=== PATIENT | female | born 1965 | race Hispanic/Latino ===

== ENCOUNTER → 2020-05-27 | Outpatient (CLI) | payer OTHER | END | disposition home or self-care (01) | LOC: RAH 12:52 | PROVIDERS: ATTEND Internal Medicine | DX: Z13.6 Encounter for screening for cardiovascular disorders (principal) | CPT/HCPCS: 75571 ==

== ENCOUNTER → 2022-04-27 | Outpatient (CLI) | payer OTHER | END | disposition home or self-care (01) | LOC: RAH 15:18 | PROVIDERS: ATTEND Internal Medicine | DX: Z01.818 Encounter for other preprocedural examination (principal); K46.9 Unspecified abdominal hernia without obstruction or gangrene | CPT/HCPCS: 71046 ==

== ENCOUNTER → 2023-06-08 | Outpatient (CLI) | payer OTHER ==
[~2023-06-08] MED LIST: INSU100I26 SQ; LIRA0.6P2 SQ; METF-446 PO; PRAV10TA39 PO; REPA2TAB8 PO
== END | disposition home or self-care (01) ==
LOC: RAH 10:46
PROVIDERS: ATTEND Internal Medicine
DX: M79.604 Pain in right leg (principal)
CPT/HCPCS: 93971

== ENCOUNTER → 2023-06-13 | Outpatient (CLI) | payer OTHER | END | disposition home or self-care (01) | LOC: RAH 08:43 | PROVIDERS: ATTEND Internal Medicine | DX: M47.26 Other spondylosis with radiculopathy, lumbar region (principal); M48.061 Spinal stenosis, lumbar region without neurogenic claudication; G25.81 Restless legs syndrome; M47.818 Spondylosis without myelopathy or radiculopathy, sacral and sacrococcygeal region; M16.11 Unilateral primary osteoarthritis, right hip | CPT/HCPCS: 72100; 72220; 73502 ==

== ENCOUNTER → 2023-07-20 | Outpatient (CLI) | payer OTHER | END | disposition home or self-care (01) | LOC: RAH 16:05 | PROVIDERS: ATTEND Internal Medicine | DX: M25.561 Pain in right knee (principal) | CPT/HCPCS: 73560 ==

== ENCOUNTER → 2023-08-09 | Outpatient (CLI) | payer OTHER | END | disposition home or self-care (01) | LOC: RAH 07:53 | PROVIDERS: ATTEND Internal Medicine | DX: S83.241A Other tear of medial meniscus, current injury, right knee, initial encounter (principal); M25.561 Pain in right knee; M17.9 Osteoarthritis of knee, unspecified; M54.16 Radiculopathy, lumbar region; M25.461 Effusion, right knee; X58.XXXA Exposure to other specified factors, initial encounter; Y93.89 Activity, other specified; Y92.89 Other specified places as the place of occurrence of the external cause | CPT/HCPCS: 73721 ==

== ENCOUNTER → 2023-08-13 | Outpatient (CLI) | payer OTHER | END | disposition home or self-care (01) | LOC: RAH 13:41 | PROVIDERS: ATTEND Internal Medicine | DX: M54.16 Radiculopathy, lumbar region (principal) | CPT/HCPCS: 72148 ==

== ENCOUNTER → 2023-08-23 | Outpatient (CLI) | payer OTHER ==
[2023-08-23 20:28] LABS: BODY FLUID RBC 6064 /cu. mm.; BODY FLUID WBC 264 /cu. mm.
[2023-08-23 20:29] LABS: APPEARANCE BODY FLUID CLOUDY (CLEAR); COLOR,BODY FLUID ORANGE (LT YELLOW); SPECIMENTYPE,BODY FLUID SYNOVIAL; TOTAL VOLUME,BODY FLUID 15 mL
[2023-08-23 21:13] LABS: BF LYMPHOCYTE 45 %; BF MONOCYTE 21 %; BF TOTAL CELLS COUNTED 100
== END | disposition home or self-care (01) ==
LOC: LAB 16:42
PROVIDERS: ATTEND Student in an Organized Health Care Education/Training Program
DX: M25.461 Effusion, right knee (principal)
CPT/HCPCS: 87070; 87076; 87205; 89051; 89060

== ENCOUNTER → 2023-12-12 | Outpatient (CLI) | payer OTHER | END | disposition home or self-care (01) | LOC: RAH 13:09 | PROVIDERS: ATTEND Internal Medicine | DX: Z01.818 Encounter for other preprocedural examination (principal) | CPT/HCPCS: 71045 ==

== ENCOUNTER 2023-12-21 06:36 | Day surgery (SDC) | payer OTHER ==
[2023-12-19 10:53] VITALS: BP 128/70; PULSE 76; RESP 18
[2023-12-19 10:58] LABS: BASOPHILS # (AUTO) 0.04 K/uL (0.00-0.20); BASOPHILS % (AUTO) 0.6 % (0.0-5.0); EOSINOPHILS # (AUTO) 0.08 K/uL (0.00-0.70); EOSINOPHILS % (AUTO) 1.2 % (0.0-8.0); HEMATOCRIT 39.1 % (36-48); IMMATURE GRANULOCYTE ABSOLUTE 0.02 K/uL (0-1); LYMPHOCYTES # (AUTO) 2.1 K/uL (1.0-4.8); LYMPHOCYTES % (AUTO) 30.5 % (21.0-51.0); MEAN CORPUSCULAR HEMOGLOBIN 31.7 pg (27.0-33.0); MEAN CORPUSCULAR HGB CONC 33.2 g/dL (32.0-36.0); MEAN CORPUSCULAR VOLUME 95.4 fL (79-99); MONOCYTES # (AUTO) 0.5 K/uL (0.1-1.0); MONOCYTES % (AUTO) 7.4 % (3.0-13.0); NEUTROPHILS # (AUTO) 4.1 K/uL (1.8-7.7); PLATELET COUNT (AUTO) 200 K/uL (130-400); RED CELL DISTRIBUTION WIDTH 12.7 % (11.0-15.5); WHITE BLOOD COUNT (AUTO) 6.8 K/uL (4.8-10.8)
[2023-12-19 11:07] LABS: CREATININE 0.5 mg/dL (0.5-1.0); POTASSIUM 4.6 mmol/L (3.5-5.1)
[2023-12-19 11:08] LABS: INR <= 0.93 (0.85-1.15); PROTHROMBIN TIME 10.5 SEC (9.6-11.6)
[2023-12-19 11:10] LABS: PARTIAL THROMBOPLASTIN TIME 27.9 SEC (26.3-35.5)
[~2023-12-21] VITALS: Ht 157.5 cm; Wt 69.7 kg
[2023-12-21] VITALS (18 sets, daily range): BP systolic 121–155; BP diastolic 61–88; PULSE 70–88; RESP 13–17
[~2023-12-21 06:36] MED LIST changes: +ERGO500093 PO; +IBUP-2070 PO; +INSLAN SQ; -INSU100I26 SQ; -LIRA0.6P2 SQ; -PRAV10TA39 PO; +ROSU5TAB43 PO; +SEMA1PEN3 SQ
[2023-12-21] MEDS ORDERED: EPINEPHRINE PF 1MG (1:1,000) 1 MG/ML AMP ONE (07:19)
[2023-12-21] MEDS ORDERED: SUCCINYLCHOLINE CHLORIDE 20 MG/ML 10 ML VIAL ONE (07:25)
[2023-12-21] MEDS ORDERED: LIDOCAINE PF 100MG/5ML (2%) SYRINGE 5ML ONE (07:25)
[2023-12-21] MEDS ORDERED: ONDANSETRON 4MG INJ ONE (07:26)
[2023-12-21] MEDS ORDERED: PROPOFOL 10 MG/ML 20ML VIAL IV ONE (07:26)
[2023-12-21] MEDS ORDERED: DEXAMETHASONE SOD PHOSPHATE 10MG/ML 1ML VIAL ONE (07:26)
[2023-12-21] MEDS ORDERED: GLYCOPYRROLATE 0.2 MG/ML 5 ML VIAL ONE (07:26)
[2023-12-21] MEDS ORDERED: MIDAZOLAM HCL 1 MG/ML 2ML VIAL ONE (07:26)
[2023-12-21] MEDS ORDERED: NEOSTIGMINE METHYLSULFATE 1MG/ML IV ONE (07:26)
[2023-12-21] MEDS ORDERED: ROCURONIUM BROMIDE 10MG/1ML 5ML VL ONE (07:26)
[2023-12-21] MEDS ORDERED: FENTANYL CITRATE PF 50 MCG/1 ML 2ML VIAL ONE ×2 (07:27→08:37)
[2023-12-21] MEDS: 0.9%NACL 1000ML 1,000 ML IV ONE (07:32)
[2023-12-21] MEDS: CEFAZOLIN SODIUM 2 GM VIAL ONE (07:33)
[2023-12-21] MEDS: CEFAZOLIN SODIUM 2 GM VIAL IVPB ONE (08:10)
[2023-12-21] MEDS ORDERED: BUPIVACAINE/PF 0.25% 30ML VIAL IJ ONE (09:26)
[2023-12-21] MEDS ORDERED: ACET-2079 PO (09:45)
[2023-12-21] MEDS: MEPERIDINE-PF 25 MG/ML SYG ONE (10:22)
[2023-12-21] MEDS: ONDANSETRON 4MG INJ ONE (10:27)
== END 2023-12-21 11:35 | disposition home or self-care (01) ==
LOC: DAH 06:36
PROVIDERS: ATTEND Student in an Organized Health Care Education/Training Program
DX: M17.11 Unilateral primary osteoarthritis, right knee (principal); S83.231A Complex tear of medial meniscus, current injury, right knee, initial encounter; S83.281A Other tear of lateral meniscus, current injury, right knee, initial encounter; M25.561 Pain in right knee; M25.661 Stiffness of right knee, not elsewhere classified; M22.41 Chondromalacia patellae, right knee; E11.9 Type 2 diabetes mellitus without complications; X58.XXXA Exposure to other specified factors, initial encounter; Y93.89 Activity, other specified; Y92.89 Other specified places as the place of occurrence of the external cause; Y99.8 Other external cause status; Z82.5 Family history of asthma and other chronic lower respiratory diseases; Z82.3 Family history of stroke; Z80.42 Family history of malignant neoplasm of prostate; Z83.3 Family history of diabetes mellitus; Z82.49 Family history of ischemic heart disease and other diseases of the circulatory system; Z79.4 Long term (current) use of insulin; Z79.1 Long term (current) use of non-steroidal anti-inflammatories (NSAID); Z79.84 Long term (current) use of oral hypoglycemic drugs; Z72.89 Other problems related to lifestyle; Z98.51 Tubal ligation status; Z90.710 Acquired absence of both cervix and uterus; Z98.890 Other specified postprocedural states
CPT/HCPCS: 80048; 85025; 85610; 85730; 36415; 29880; 97161; 82948 ×2; 97116; A4663; A4649 ×3; J3010 ×2; J1100; J0330; J7030; J0665; J3490 ×2; J2001; J0171; J2250; J2704; J2405 ×2; J2710; J2175; J0690 ×2; A6223; A4930; A5120; A4215; A4223; A4222; A6450; A4221

== ENCOUNTER → 2024-02-01 | Outpatient (CLI) | payer OTHER ==
[~2024-02-01] MED LIST changes: +ACET-2079 PO
== END | disposition home or self-care (01) ==
LOC: RAH 13:10
PROVIDERS: ATTEND Internal Medicine
DX: M51.16 Intervertebral disc disorders with radiculopathy, lumbar region (principal)
CPT/HCPCS: 72148

== ENCOUNTER 2025-03-27 07:18 | Day surgery (SDC) | payer OTHER ==
[2025-03-27] VITALS (10 sets, daily range): BP systolic 83–122; BP diastolic 40–76; PULSE 71–86; RESP 15–17; TEMP 97.4–97.7
[~2025-03-27] VITALS: Ht 157.5 cm; Wt 7.3 kg
[~2025-03-27 07:18] MED LIST changes: +IBUP-1492 PO; -IBUP-2070 PO; -ROSU5TAB43 PO; +ROSU5TAB51 PO
[2025-03-27] MEDS ORDERED: GABA-529 PO (07:58)
[2025-03-27] MEDS ORDERED: TIRZ5PEN SQ (07:58)
[2025-03-27] MEDS ORDERED: ESCI5TAB16 PO (07:58)
[2025-03-27] MEDS ORDERED: LATA2.5D7 OP (07:58)
[2025-03-27 08:04] LABS: IMMATURE GRANULOCYTE ABSOLUTE 0.01 K/uL (0-1); NUCLEATED RED BLOOD CELLS 0.0 % (0.0-0.19); PLATELET COUNT (AUTO) 181 K/uL (130-400); RED BLOOD CELL COUNT(AUTO) 3.99 MIL/uL (4.00-5.50); RED CELL DISTRIBUTION WIDTH 12.9 % (11.0-15.5); WHITE BLOOD COUNT (AUTO) 5.4 K/uL (4.8-10.8)
[2025-03-27] MEDS: 0.9%NACL 1000ML 1,000 ML IV SCH (08:09)
[2025-03-27 08:14] LABS: INR 1.01 (0.85-1.15)
[2025-03-27 08:24] LABS: CREATININE 0.7 mg/dL (0.5-1.0); GLOMERULAR FILTR. RATE CALC 98.0 mL/min (>90); GLUCOSE,RANDOM 140.0 mg/dL (70-105); SODIUM SERUM 142.0 mmol/L (136-145); UREA NITROGEN, BLOOD 6.0 mg/dL (7-18)
[2025-03-27] MEDS ORDERED: MIDAZOLAM HCL 1 MG/ML 2ML VIAL ONE (08:24)
[2025-03-27] MEDS ORDERED: LIDOCAINE PF 100MG/5ML (2%) SYRINGE 5ML ONE (08:25)
== END 2025-03-27 10:11 | disposition home or self-care (01) ==
LOC: DAH 07:18
PROVIDERS: ATTEND Student in an Organized Health Care Education/Training Program
DX: R10.13 Epigastric pain (principal); K29.50 Unspecified chronic gastritis without bleeding; I10 Essential (primary) hypertension; E11.9 Type 2 diabetes mellitus without complications; D37.8 Neoplasm of uncertain behavior of other specified digestive organs; Z79.4 Long term (current) use of insulin; Z79.899 Other long term (current) drug therapy
CPT/HCPCS: 43239; 80048; 85025; 85610; 85730; 82948 ×2; 36415; 88305; 88312; J3010; J1100; J2003; J2250; J2704; J2405; A4620; A4215 ×2; A4223; A4222; A4221; A4663; A4606; J3490